=== PATIENT | female | born 1940 | race Hispanic/Latino ===

== ENCOUNTER 2024-11-23 12:32 | Emergency (ER) | payer SELFPAY ==
[2024-11-23 12:48] VITALS: BP 145/55; PULSE 68; RESP 16; TEMP 36.5; O2SAT 99
--- NOTE | 2024-11-23 12:57 | ED.FALL ---
HPI - Fall General Chief Complaint: Fall Stated Complaint: Fell in shower 1 week ago/ Irizarry pain Time Seen by Provider: 11/23/24 12:57 Source: patient, RN notes reviewed and old records reviewed Mode of arrival: ambulatory Limitations: no limitations History of Present Illness [facility] Narrative: Patient had trip and fall 1 week ago, struck her left irizarry on the shower. She has continued pain to the left irizarry, has been applying ice and taking Tylenol with minimal relief. Is able to bear weight without difficulty. Denies other injury and trauma, including head trauma. Voices no other concerns or complaints at this time. Related Data Allergies Allergy/AdvReac Type Severity Reaction Status Date / Time No Known Allergies Allergy Verified 11/23/24 13:43 Review of Systems Review of Systems: All systems reviewed & are unremarkable except as noted in HPI and below Constitutional: Constitutional: Reports no additional constitutional complaints ENT: Reports system reviewed and no additional complaints, except as documented Cardiovascular: Cardiovascular: Reports no additional cardiovascular complaints Respiratory: Respiratory: Reports no additional respiratory complaints Gastrointestinal: Gastrointestinal: Reports no additional gastrointestinal complaints Musculoskeletal: Musculoskeletal: Reports no additional musculoskeletal complaints and Reports as per HPI [facility] Comments At the time of my signature, I reviewed and agree with the nursing past medical, surgical, social, and family history. There is no relevant family history pertinent to the patient complaint. Exam Const: General: cooperative, no acute distress, alert and awake Orientation/consciousness: oriented to person, oriented to place and oriented to time HENMT: Head: normal to inspection Resp: Effort & Inspection: normal respiratory effort and able to speak in complete sentences Auscultation: clear to auscultation bilaterally, no crackles, no rales, no rhonchi and no wheezes Cardio: Palpation: normal PMI Rate: regular rate Rhythm: regular rhythm Heart sounds: S1 normal heart sound present and S2 normal heart sound present Neuro: General: oriented to person, oriented to place and oriented to time Cranial nerves: Yes CN's II-XII intact bilaterally Extrem: Upper/lower leg/hip images:  1. hematoma Psych: Appearance: grossly normal Thought process: Normal thought process present Insight: Good insight present (Psych) Judgement: Good judgement present (Psych) Course Course Level of Care: Express Care Visit Vital Signs Vital signs: Vital Signs Temperature 97.7 F 11/23/24 12:48 Pulse Rate 68 11/23/24 12:48 Respiratory Rate 16 11/23/24 12:48 Blood Pressure 145/55 H 11/23/24 12:48 Pulse Oximetry 99 11/23/24 12:48 Oxygen Delivery Room Air 11/23/24 12:48 Temperature 97.7 F 11/23/24 12:48 Pulse Rate 68 11/23/24 12:48 Respiratory Rate 16 11/23/24 12:48 Blood Pressure 145/55 H 11/23/24 12:48 Pulse Oximetry 99 11/23/24 12:48 Oxygen Delivery Room Air 11/23/24 12:48 Reviewed MDM - Fall MDM Narrative Medical decision making narrative: Patient able to bear weight without any apparent difficulty. History and exam consistent with hematoma. Treat symptomatically Discharge instructions reviewed with patient, as well as provided in writing per nursing staff. The instructions also include specific and strict return/GO TO THE ER as well as f/u information. All questions have been answered, and the patient deny any further questions with discharge and discharge plan. Some parts of this dictation were generated by voice recognition software and may contain typographical and/or grammatical inaccuracies. Differential Diagnosis Differential diagnosis: Likely other (Ecchymosis, musculoskeletal pain) Medical Records Attestation: I reviewed the patient's medical records. Discharge Plan Discharge Clinical Impression: Hematoma Patient Disposition: Home, Self-Care Condition: Stable Instructions: Antibiotic Form, Hematoma (ED) Additional Instructions: Take medications as prescribed. Follow with primary care provider. Emergency department for new or worse symptoms Patient Language: Qatari Follow-up/Referrals: PHYSICIAN,MANAGER STRATEGY & ACCOUNT [Primary Care Provider] - Time of Disposition: 13:10
== END 2024-11-23 13:18 | disposition home or self-care (01) ==
PROVIDERS: Emergency Provider Nurse Practitioner Family
DX: S80.12XA Contusion of left lower leg, initial encounter (principal); W01.198A Fall on same level from slipping, tripping and stumbling with subsequent striking against other object, initial encounter; I10 Essential (primary) hypertension; E78.00 Pure hypercholesterolemia, unspecified; E03.9 Hypothyroidism, unspecified
CPT/HCPCS: 99202; G0463

== ENCOUNTER 2024-12-13 19:19 | Emergency (ER) | payer SELFPAY ==
--- OUTSIDE RECORDS SUMMARY | 2024-12-13 19:21 | XMS_ITS | Clinical Summary ---
[facility] Organization [facility] Address [address] [place] [address] Care Team Providers Care Epic Specialist Name Role Phone No, Physician Primary Care Provider [phone] Allergies No known active allergies Medications ketorolac (TORADOL) 10 mg tabletIndicatio ns:Renal Colic Take 1 tablet (10 mg total) by mouth every 6 (six) hours as needed for pain 20 tablet 05/30/2023 Active HYDROcodone-shahida taminophen (NORCO) 5-325 mg per tabletIndicatio ns:Pain Take 1 tablet by mouth every 6 (six) hours as needed for pain 10 tablet 05/30/2023 Active tamsulosin (FLOMAX) 0.4 mg extended release capsule Take 1 capsule (0.4 mg total) by mouth daily 10 capsule 05/30/2023 Active Social History Tobacco Use Types Packs/Day Years Used Date Smoking Tobacco: Never Assessed Personal Safety Answer Date Recorded Getting School Help Needed Not on file 06/05 Comments Unknown Sex and Gender Information Value Date Recorded Sex Assigned at Not on file 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 Gender Identity Not on file Sexual Orientation Not on file Last Filed Vital Signs Vital Sign Reading Time Taken Comments Blood Pressure 101/52 05/30/2023 4:30 PM CDT Pulse 67 05/30/2023 4:30 PM CDT Temperature 36.5 ??C (97.7 ??F) 05/30/2023 9:42 AM CD T Respiratory Rate 14 05/30/2023 4:30 PM CDT Oxygen Saturation 100% 05/30/2023 4:30 PM CDT Inhaled Oxygen Concentration - - Weight 53.1 kg (117 lb 1 oz) 05/30/2023 9:42 AM CDT Height 152.4 cm (5') 05/30/2023 9:42 AM CDT Body Mass Index 22.86 05/30/2023 9:42 AM CDT Plan of Treatment Health Maintenance Due Date Last Done Comments Depression Screening 1940 Fall Risk Assessment 1940 Osteoporosis Screening-Bone Density Scan 1940 DTaP/Tdap/Td Vaccine (1 - Tdap) 1951 Hepatitis B Screening 1958 Zoster Vaccine (1 of 2) 1990 Pneumococcal vaccine 65+ (1 of 1 - PCV) 2005 Well Visit 65+ 2005 Influenza Vaccine (#1) 2024 Care Teams Epic Specialist Relationship Specialty Start Date End Date No, Physician PCP - General 02/15/19
--- OUTSIDE RECORDS SUMMARY | 2024-12-13 19:21 | XMS_ITS | Referral Summary ---
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
[2024-12-13 19:34] VITALS: BP 147/52; PULSE 69; RESP 19; TEMP 36.4; O2SAT 99
--- NOTE | 2024-12-14 01:56 | PC.NURSE ---
Patient called to triage for repeat vital signs. No answer.
--- OUTSIDE RECORDS SUMMARY | 2024-12-14 02:03 | XMS_ITS | Clinical Summary ---
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
--- OUTSIDE RECORDS SUMMARY | 2024-12-14 02:03 | XMS_ITS | Referral Summary ---
Author Organization [facility] Address [address] [place] [address] Care Team Providers Care Roll Table Operator Name Role Phone No, Physician Primary Care Provider [phone] Allergies No known active allergies Medications ketorolac [...] on file Legal Sex Female 12:26 PM RN IMMUNOLOGY Gender Identity Not on file Sexual Orientation [...] of Treatment Not on file Care Teams Roll Table Operator Relationship Specialty Start Date End Date No, Physician PCP - General 02/15/19
== END 2024-12-13 22:04 | disposition left against medical advice (07) ==
DX: S89.92XA Unspecified injury of left lower leg, initial encounter (principal)
CPT/HCPCS: 99199